=== PATIENT | male | born 1985 | race Caucasian/White ===

== ENCOUNTER 2020-12-05 12:58 | Emergency (ER) | payer OTHER ==
[2020-12-05 13:08] VITALS: BP 116/68; PULSE 51; BMI 29.9
[2020-12-05] MEDS ORDERED: ACETAMINOPHEN 325 MG TABLET (FP) PO ONE (13:47)
[2020-12-05] MEDS ORDERED: DIPHTH,PERTUSS(ACELL),TET 0.5 ML DISP.SYRIN IM ONE (13:47)
== END 2020-12-05 17:35 | disposition home or self-care (01) ==
LOC: JER 12:58
PROC: 3E0234Z Introduction of Serum, Toxoid and Vaccine into Muscle, Percutaneous Approach (ICD-10-PCS; principal; 2020-12-05)
DX: S61.012A Laceration without foreign body of left thumb without damage to nail, initial encounter (principal)
CPT/HCPCS: 73130-TC-LT-FY; 90715; 99284-25